=== PATIENT | male | born 1960 | race Caucasian/White ===

== ENCOUNTER 2020-08-30 21:37 | Inpatient (IN) | payer MEDICAID ==
[~2020-08-30] VITALS: Ht 162.6 cm; Wt 62.8 kg
--- NOTE | 2020-08-30 22:05 | NUR ---
TO ER BED BED 9 AMBULATORY C/O FREQUENT URINATION, FREQUENT THIRST, R CALF PAIN X1 MONTH. NAUSEA X2 DAYS. PT AAOX4 NO ACUTE DISTRESS NOTED, RESP EVEN AND UNLABORED. PLACE PT ON CARDIA CMONITORING, CONTINUOUS POX. PENDING ER MD MOSELEY.
--- NOTE | 2020-08-30 22:16 | NUR ---
PT PLACED IN GOWN, BELONINGS IN BAG. NO SKIN ISSUES NOTED.
[2020-08-30] MEDS ORDERED: ONDANSETRON HCL/PF 4 MG/2 ML VIAL ONE (22:28)
[2020-08-30] MEDS ORDERED: IV NS 0.9% 1,000 ML BAG IV ONE (22:30)
[2020-08-30] MEDS ORDERED: ONDANSETRON HCL/PF 4 MG/2 ML VIAL IVP ONE (22:30)
[2020-08-30 22:32] LABS: BASOPHILS # (AUTO) 0.1 /CMM (0.0-0.2); BASOPHILS % (AUTO) 0.6 % (0.0-2.0); HEMATOCRIT 58 % (39-51); HEMOGLOBIN 18.4 g/dL (13.5-17.5); LYMPHOCYTES # (AUTO) 0.7 /CMM (0.8-4.8); LYMPHOCYTES % (AUTO) 5.6 % (20.0-44.0); MEAN CORPUSCULAR HGB CONC 32 g/dl (31.0-36.0); MEAN CORPUSCULAR VOLUME 97 fL (80-96); MONOCYTES # (AUTO) 0.5 /CMM (0.1-1.30); MONOCYTES % (AUTO) 3.6 % (2.0-12.0); NEUTROPHILS # (AUTO) 11.9 /CMM (1.8-8.9); NEUTROPHILS % (AUTO) 90.2 % (43.0-81.0); PLATELET COUNT (AUTO) 298 /CMM (150-450); RED BLOOD CELL COUNT(AUTO) 5.99 MIL/uL (4.5-6.0); WHITE BLOOD COUNT (AUTO) 13.2 K/uL (4.3-11.0)
[2020-08-30 22:46] LABS: BILIRUBIN,URINE NEGATIVE (NEGATIVE); COLOR,URINE YELLOW (YELLOW); LEUKOCYTE ESTERASE ,URINE NEGATIVE (NEGATIVE); NITRITE, URINE NEGATIVE (NEGATIVE); PROTEIN,URINE NEGATIVE (NEGATIVE); UGLUCOSE >=1000 mg/dL (NEGATIVE); UROBILINOGEN,URINE 0.2 EU/dL (0.2)
[2020-08-30 22:52] LABS: BACTERIA,URINE None seen /HPF (None Seen); RBC,URINE 0-2 /HPF (0-2); SQUAMOUS EPITHELIAL CELL,UR Few /HPF (None Seen); WBC,URINE 0-2 /HPF (0-3)
[2020-08-30 23:05] LABS: BAND % (MANUAL) 2 % (0.0-5.0); LYMPHOCYTES % (MANUAL) 4 % (16-48); MONOCYTES % (MANUAL) 2 % (0-11.0); NEUTROPHILS % (MANUAL) 92 (42-76)
[2020-08-30 23:12] LABS: ALANINE AMINOTRANSFERASE 37 U/L (12-78); ALBUMIN 3.6 g/dL (3.4-5.0); ALKALINE PHOSPHATASE 169 U/L (46-116); ASPARTATE AMINOTRANSFERASE 14 U/L (15-37); BILIRUBIN,DIRECT 0.1 mg/dL (0.0-0.2); BILIRUBIN,TOTAL 0.5 mg/dL (0.2-1.0); CARBON DIOXIDE 22 mmol/L (21-32); CHLORIDE 98 mmol/L (98-107); CREATININE 1.7 mg/dL (0.6-1.3); LIPASE 172 U/L (73-393); POTASSIUM 5.2 mmol/L (3.5-5.1); SODIUM SERUM 138 mmol/L (136-145); TOTAL PROTEIN, SERUM 7.9 g/dL (6.4-8.2); UREA NITROGEN, BLOOD 29 mg/dL (7-18)
[2020-08-30 23:14] LABS: GLUCOSE 894 mg/dL (74-106)
--- NOTE | 2020-08-30 23:21 | NUR ---
RT AT BEDSIDE FOR ABG
[2020-08-30] MEDS ORDERED: INSULIN REGULAR, HUMAN 100 UNIT/ML 10 ML VIAL ONE (23:26)
[2020-08-30] MEDS ORDERED: INSULIN REGULAR, HUMAN 100 UNIT in IV NS 0.9% 99 ML IV PRN (23:30)
--- NOTE | 2020-08-30 23:42 | NUR ---
SPOKE TO PATIENT'S SISTER REGARDING PLAN OF CARE.
--- NOTE | 2020-08-30 23:42 | NUR ---
CALLED LAB FOR COVID SWAB
[2020-08-30 23:44] LABS: ABG BASE EXCESS -9.4 mmol/L; ABG OXYGEN SATURATION 95.2 % (92.0-98.5); ABG PCO2 31.9 mmHg (35.0-45.0); ABG PH 7.304 (7.350-7.450); ABG PO2 80.1 mmHg (75.0-100.0); AaDO2 31.4 mmHg; MetHb 0.1 % (0.0-1.5); O2Hb 93.2 % (94.0-97.0); SITE, ABG Right Radial
--- NOTE | 2020-08-30 23:54 | NUR ---
SPOKE TO PT, REPORTS DOES NOT TAKE ANY MEDICATIONS AT HOME.
--- NOTE | 2020-08-31 00:07 | NUR ---
SPOKE TO THE SISTER RADHA
--- NOTE | 2020-08-31 00:50 | NUR ---
DEVAUGHN [employer] WEBSPH[employer] DEVELOPER AT BEDSIDE
--- NOTE | 2020-08-31 00:56 | NUR ---
REPORT GIVEN TO RUDY ENCARNACION FOR APRIL
[2020-08-31 01:30] VITALS: BP 136/95
[2020-08-31] MEDS ORDERED: MORPHINE SULFATE INJ 2 MG/ML DISP.SYRIN IV PRN (01:30)
[2020-08-31] MEDS ORDERED: MAGNESIUM HYDROXIDE 30 ML UDC PO PRN (01:30)
[2020-08-31] MEDS ORDERED: NICOTINE PATCH (14MG) 14 MG PATCH.TD24 TD SCH (01:30)
[2020-08-31] MEDS ORDERED: ONDANSETRON HCL/PF 4 MG/2 ML VIAL IVP PRN (01:30)
[2020-08-31] MEDS ORDERED: IV NS 0.9% 1,000 ML IV PRN (01:30)
--- NOTE | 2020-08-31 01:30 | NUR ---
RECEIVED PT FROM ER VIA MARIA VICTORIA, A/A/O X4, ON RA SATING 97% TO 99%. PT ON DIGITAL ASSET MANAGER SHOWING SR IN 90s. SAFETY MEASURES IN PLACE.
--- NOTE | 2020-08-31 01:40 | NUR ---
PT TRANSFERED PER ACLS PROTOCOL
[2020-08-31 02:00] VITALS: BP 141/82
--- NOTE | 2020-08-31 02:18 | NUR ---
PT COMPLAINS OF RIGHT LEG PAIN 10/10, MORPHINE 2 MG ADMINISTERED ORDERED.
[2020-08-31] MEDS: INSULIN REGULAR, HUMAN 100 UNIT in IV NS 0.9% 99 ML IV PRN ×2 (02:33→03:16)
--- NOTE | 2020-08-31 02:37 | NUR ---
RECEIVED PT FROM ER, WITH INSULIN RUNNING AT 7U, VERIFIED WITH CAR (COUNCILMAN) TO START ALGORITHM 1 PROTOCOL ORDER.
--- NOTE | 2020-08-31 03:25 | NUR ---
PT PULLED OUT BOTH IVS,HIS INSULIN DRIP AND FLUID. PT WANTS TO LEAVE AMA.CAR NOTIFIED [facility] COUNSELOR.
--- NOTE | 2020-08-31 03:26 | NUR ---
PT WANTS TO LEAVE AMA, EXPLAINED THE RISKS OF LEAVING AMA, BUT STILL PT WANTS TO LEAVE AMA. PT STATES" I WANT TO GO TO OTHER HOSPITAL".
--- NOTE | 2020-08-31 03:27 | NUR ---
RISK MANAGER PHONG NOTIFIED, PT WANTS TO LEAVE AMA.
--- NOTE | 2020-08-31 03:51 | NUR ---
pt left the unit at 0345, accompanid pt to exit by wheelchair, pt picked up by her daughter. Addendum: 08/31/20 at 0416 by BRIT MERCEDES RN PT LEFT THE UNIT IN STABLE CONDITION WITH ALL HIS BELONGINGS, PT SIGNED THE BELONGING LIST.
== END 2020-08-31 03:45 | disposition left against medical advice (07) | DRG 420 ==
LOC: ER 21:37 → ICU 08-31 00:02
PROVIDERS: ADMIT Nurse Practitioner Acute Care; ATTEND Nurse Practitioner Acute Care
DX: E11.10 Type 2 diabetes mellitus with ketoacidosis without coma (principal); N17.0 Acute kidney failure with tubular necrosis; D72.829 Elevated white blood cell count, unspecified; E87.5 Hyperkalemia; F15.20 Other stimulant dependence, uncomplicated; Z59.0 Homelessness; F17.210 Nicotine dependence, cigarettes, uncomplicated
CPT/HCPCS: 36415; 36600; 71045-TC; 80048-TC; 80076-TC; 81001; 82803-TC; 82962-TC; 83690-TC; 84484-TC; 85025-TC; 87081-TC; G0378; J1815; J2270; J2405; J7030